=== PATIENT | female | born 1995 | race Two or more races ===

== ENCOUNTER 2018-09-28 09:07 | Emergency (ER) | payer MEDICAID ==
[~2018-09-28] VITALS: Ht 160 cm; Wt 59.0 kg
[2018-09-28] MEDS ORDERED: NKM (09:26)
--- NOTE | 2018-09-28 09:30 | NUR ---
ED Nurse Note: patient is a/o x4 ambulatory, came in with the mother, c/o low back (mainly on the right) and abdominal pain , cramping x 5-6 days; patient c/o urgency, passing small amount of urine when she goes to restroom. Reports no N/V or fever. Reports no injury
[2018-09-28 09:43] VITALS: BP 112/80
[2018-09-28 09:57] LABS: APPEARANCE,URINE SLIGHTLY CLOUDY; BILIRUBIN, URINE NEGATIVE (NEGATIVE); GLUCOSE, URINE (UA) NEGATIVE (NEGATIVE); KETONES,URINE NEGATIVE (NEGATIVE); LEUKOCYTE ESTERASE ,URINE 3+ (NEGATIVE); NITRITE,URINE NEGATIVE (NEGATIVE); PH,URINE 5 (4.5-8.0); PROTEIN,URINE 1+ (NEGATIVE); UROBILINOGEN,URINE 1 MG/DL (0.0-1.0)
--- NOTE | 2018-09-28 09:58 | Emergency Room Report ---
History of Present Illness General Chief Complaint: Abdominal Pain Source: Patient Present Illness HPI Patient presents with complaints of initially low back pain Reports that several weeks ago she had discomfort had been seen by physical therapist and after some adjustments for her pelvic area she improved More recently she has similar discomfort perform some stretching exercises And felt an increased discomfort in the lower back That was 2 days ago She is much better now initially she was having difficulty sitting and laying down Currently the patient is able to ambulate and has not had much Discomfort since then Patient also reports that she has had nausea over the past 1 month Denies any association with eating or position denies any vomiting or diarrhea Patient also reports that she has some discomfort with urination recently She reports that she had also discomfort with intercourse last 2 times but denies any vaginal spotting or bleeding Allergies: Coded Allergies: No Known Allergies (Unverified , 09/28/18) Patient History Past Medical History: see triage record Pertinent Family History: none Last Menstrual Period: 09/15/2018 Reviewed Nursing Documentation: PMH: Agreed; PSxH: Agreed Nursing Documentation-PMH Past Medical History: No History, Except For Hx Neurological Problems: Yes - vertigo Review of Systems All Other Systems: negative except mentioned in HPI Physical Exam Vital Signs Date Time Temp Pulse Resp B/P (MAP) Pulse Ox O2 Delivery O2 Flow Rate FiO2 09/28/18 09:20 98.2 91 14 112/80 100 Room Air Sp02 EP Interpretation: reviewed, normal General Appearance: well appearing, no apparent distress Head: normocephalic, atraumatic Eyes: bilateral eye PERRL, bilateral eye EOMI ENT: hearing grossly normal, normal pharynx, TMs + canals normal, uvula midline Neck: full range of motion, supple, no meningismus, no bony tend Respiratory: lungs clear, normal breath sounds, no rhonchi, no respiratory distress, no retraction, no accessory muscle use Cardiovascular #1: normal peripheral pulses, regular rate, rhythm, no edema, no gallop, no JVD, no murmur Gastrointestinal: normal bowel sounds, non tender, soft, no mass, no organomegaly, non-distended, no guarding, no hernia, no pulsatile mass, no rebound Genitourinary: no CVA tenderness Musculoskeletal: normal inspection Neurologic: oriented x3, responsive, strong nitric operator III-XII nml as tested, motor strength/ tone normal, sensory intact Psychiatric: mood/affect normal Skin: normal color, no rash, warm/dry, palpation normal Lymphatic: normal inspection, no adenopathy Medical Decision Making Diagnostic Impression: Primary Impression: UTI (urinary tract infection) ER Course Multiple differentials considered musculoskeletal, infectious, neurosurgical pathology Given the low back discomfort as well urine sample was obtained which does show infectious pathology patient requiring antibiotic coverage And will have close outpatient follow-up Was given return instructions with worsening symptoms such as fever or increased pain Labs Test 09/28/18 09:32 Urine Color Yellow Urine Appearance Slightly cloudy Urine pH 5 (4.5-8.0) Urine Specific [place] 1.020 (1.005-1.035) Urine Protein 1+ (NEGATIVE) Urine Glucose (UA) Negative (NEGATIVE) Urine Ketones Negative (NEGATIVE) Urine Blood 1+ (NEGATIVE) Urine Nitrite Negative (NEGATIVE) Urine Bilirubin Negative (NEGATIVE) Urine Urobilinogen 1 MG/DL (0.0-1.0) Urine Leukocyte Esterase 3+ (NEGATIVE) Urine RBC 5-10 /HPF (0 - 2) Urine WBC 10-15 /HPF (0 - 2) Urine Squamous Epithelial Cells Many /LPF (NONE/OCC) Urine Bacteria Many /HPF (NONE) Urine Yeast Few /HPF (NONE) Urine HCG, Qualitative Negative (NEGATIVE) Last Vital Signs Date Time Temp Pulse Resp B/P (MAP) Pulse Ox O2 Delivery O2 Flow Rate FiO2 09/28/18 09:44 91 14 Room Air 09/28/18 09:43 98.2 112/80 100 Status: improved Disposition: HOME, SELF-CARE Condition: Stable Scripts Trimethoprim/Sulfamethoxazole 160/800* (BACTRIM DS TABLET*) 1 Each Tablet 1 TAB ORAL Q12H, #20 TAB 0 Refills Prov: Alessio Treviño DO 09/28/18 Referrals: [facility],REFERRING (PCP) Additional Instructions: Patient is provided with the discharge instructions notified to follow up with primary doctor in the next 2-3 days otherwise return to the er with any worsening symptoms. Please note that this report is being documented using [employer] technology. This can lead to erroneous entry secondary to incorrect interpretation by the dictating instrument. Alessio Treviño DO Sep 28, 2018 09:58
[2018-09-28 10:04] LABS: COLOR,URINE YELLOW
[2018-09-28] MEDS ORDERED: BACTRIM DS TAB1 EAC1 ORAL (10:41)
--- NOTE | 2018-09-28 10:50 | NUR ---
ED Nurse Note: patient is being discharged, cleared by ERMD Dr. Garsia. ID band removed. prescription/instruction/paper given to the patient, education given, patient verbalized understanding. patient ambulated out of ed in steady gait.
[2018-09-28 11:00] VITALS: BP 112/80
== END 2018-09-28 10:50 | disposition home or self-care (01) ==
LOC: EMR 09:40
DX: N39.0 Urinary tract infection, site not specified (principal)
CPT/HCPCS: 81003; 81025; 87086; 99283